=== PATIENT | female | born 1965 | race Caucasian/White ===

== ENCOUNTER 2017-01-06 07:44 | Emergency (ER) | payer BC, OTHER ==
--- NOTE | 2017-01-06 08:07 | ED Physician Chart ---
Chief Complaint/HPI - Patient Information Date Seen:: 01/06/17 Time Seen:: 08:50 Chief Complaint:: ear pain History of Present Illness:: 51-year-old female complains of acute, constant, severe, aching, nonradiating, 10 out of 10, left ear pain that started this morning when she woke up about 2 hours prior to arrival. As associated upper respiratory congestion. Has had the upper respiratory congestion for the past several days. Also has underlying anxiety. This morning had some associated palpitations. Had a stress test last week but missed her appointment yesterday for follow-up results. Allergies:: Allergies Allergy/AdvReac Type Severity Reaction Status Date / Time No Known Allergies Allergy Verified 01/06/17 07:58 Vitals:: Vital Signs - 8 hr 01/06/17 07:45 Temp 98.4 F HR 96 RR 16 BP 116/72 O2 Sat % 98 Historian:: Patient Review:: Nurse's Note Reviewed Review of Systems - Review of Systems Other: Complete system review otherwise unremarkable except as noted in history of present illness. Past Medical History - Past Medical History Past Medical History: HTN, Dyslipidemia, Thyroid disorder, Other (anxiety) Family History: None Social History: Non Smoker, No Alcohol, No Drug Use Surgical History: None Psychiatricy History: Depression Medication: Reviewed Family Medical History - Family Member Mother Ethnicity: Hx Family Cancer: No Hx Family Coronary Artery Disease: No Hx Family Congestive Heart Failure: No Hx Family Hypertension: Yes Physical Exam - Physical Examination Other:: INITIAL VITAL SIGNS: Reviewed by me GENERAL: Alert and interactive. No acute distress HEAD: Head is normocephalic and atraumatic EYES: EOMI. PERRL. No scleral icterus. No conjunctival injection ENT: Left tympanic membrane is bulging and erythematous. Right TM is slightly erythematous with no bulge. NECK: Supple. No masses. Full range of motion RESPIRATORY: No tachypnea. Clear breath sounds bilaterally. No wheezing, rales, or rhonchi CV: Regular rate and rhythm. No murmurs, rubs, or gallops ABDOMEN: Soft, non-distended, non-tender. No guarding. No rebound. No masses. EXTREMITIES: No deformity. No cyanosis. No edema. SKIN: Warm and dry. No obvious rashes. NEUROLOGIC: Alert and oriented. Face is symmetric. Speech is normal. Moves all extremities equally. Motor and sensory distally intact. ED Septic Shock - . Is Septic Shock (SBP<90, OR Lactate>4 mmol\L) present?: No - <6hrs of presentation: Vital Signs: Vital Signs - 8 hr 01/06/17 07:45 Temp 98.4 F HR 96 RR 16 BP 116/72 O2 Sat % 98 Reassessment (Disposition) - Reassessment Reassessment:: Patient's here pain due to underlying otitis media. 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 Has associated upper respiratory congestion. Also reported some palpitations this morning but does have underlying anxiety. She said she had a stress test last week and was due to follow-up for the results yesterday with her primary care physician however she missed the appointment for some unknown reason. Currently EKG shows normal sinus rhythm of 88 bpm. We will treat the otitis media with amoxicillin. Also prescribed oral analgesics. Follow-up PCP 1-2 days. Return to ER precautions were given. Patient understands and agrees with the plan. Reassessment Condition:: Improved - Diagnosis Diagnosis:: Acute, left ear pain due to otitis media Acute upper respiratory infection - Aftercare/Follow up Instructions Aftercare/Follow-Up Instructions:: Counseled pt regarding lab results/diagnosis & need follow up, Refer to Discharge Instructions Medication Prescribed:: Amoxicillin Ibuprofen - Patient Disposition Discharge/Transfer:: Home Time:: 08:48 Condition at Disposition:: Improved ED Discharge Plan - Patient Disposition Admit/Discharge/Transfer: PT DISCHARGED HOME Condition at Disposition: Improved Instructions: Otitis Media, Adult, [id number]
== END 2017-01-06 09:05 | disposition home or self-care (01) ==
LOC: ER 07:44
DX: H66.92 Otitis media, unspecified, left ear (principal); J06.9 Acute upper respiratory infection, unspecified; E07.9 Disorder of thyroid, unspecified; E78.5 Hyperlipidemia, unspecified; I10 Essential (primary) hypertension
CPT/HCPCS: 93005; Z7502; Z7610